=== PATIENT | male | born 1960 | race Caucasian/White ===

== ENCOUNTER 2019-11-04 10:39 | Observation (INO) | payer OTHER, SELFPAY ==
[2019-11-04 11:27] LABS: #Basophils 0.1 thou/uL (0.0-0.2); #Eosinphils 0.1 thou/uL (0.0-0.7); #Lymphocytes 2.4 thou/uL (1.20-3.40); #Monocytes 0.5 thou/uL (0.11-0.59); #Neutrophils 4.8 thou/uL (1.40-6.50); %Eosinophils 1.4 % (0.0-10.0); %Lymphocytes 30.4 % (21.0-51.0); %Monocytes 5.8 % (0.0-10.0); %Neutrophils 61.4 % (42.0-75.0); Hemoglobin 14.5 g/dL (14.0-18.0); Mean Corpuscular HGB CONC 33.5 g/dL (32.0-36.0); Mean Corpuscular Hemoglobin 30.2 pg (27.0-31.0); Mean Platelet Volume 7.5 fL (7.4-10.4); Platelet Count 261 thou/uL (130-400); RBC Distribution Width 11.7 % (11.5-14.5); Red Blood Cell (RBC) Count 4.79 mill/uL (4.70-6.10); White Blood Cell (WBC) Count 7.9 thou/uL (4.8-10.8)
--- NOTE | 2019-11-04 11:46 | RAD ---
EXAM: Single view of the chest HISTORY: Syncope COMPARISON: None FINDINGS: Single view of the chest shows a normal sized cardiomediastinal silhouette. There is no lilia dence of consolidation, mass, or pleural effusion. The bones are unremarkable IMPRESSION: No evidence of acute cardiopulmonary disease
[2019-11-04 11:53] LABS: ALT (SGPT) 23 U/L (8-55); AST (SGOT) 20 U/L (5-34); Albumin 4.1 g/dL (3.5-5.0); Alkaline Phosphatase 47 U/L (40-110); Anion Gap 10 mmol/L (10-20); BUN (Urea Nitrogen) 12 mg/dL (8.4-25.7); Bilirubin, Total 0.5 mg/dL (0.2-1.2); CK (CPK) 129 U/L (30-200); Calc. Creatinine Clearance 0 mL/min (70-130); Calcium 8.6 mg/dL (7.8-10.44); Carbon Dioxide 24 mmol/L (22-29); Chloride 104 mmol/L (98-107); Estimated GFR-MDRD 43; Glucose 172 mg/dL (70-105); Lipase 33 U/L (8-78); Potassium 3.3 mmol/L (3.5-5.1); Protein, Total 7.1 g/dL (6.0-8.3); Sodium 135 mmol/L (136-145)
[2019-11-04 12:01] LABS: Bilirubin Negative (Negative); Blood, Urine Negative (Negative); Clarity Clear (Clear); Glucose, Urine (Dipstick) Normal (Negative); Ketone, Urine Negative (Negative); Leukocyte Negative Leu/uL (Negative); Nitrite Negative (Negative); Protein, Urine (Dipstick) 20 mg/dL (Neg-Trace); Specific Gravity, Urine 1.017 (1.002-1.036); Urobilinogen Normal mg/dL (Less than 2)
[2019-11-04 12:14] LABS: CKMB 1.2 ng/mL (0-6.6)
--- NOTE | 2019-11-04 12:38 | CT ---
CT BRAIN NONCONTRAST: DATE: 11/04/2019 HISTORY: 59-year-old male with syncope and lightheadedness with hypertension. FINDINGS: There is no evidence of acute intra-axial or extra-axial hemorrhage. There is no midline shift or any other mass effect. There is no extra-axial fluid collection. There is no evidence of obstructive hydrocephalus. Calvarium is intact. Visualized upper portions of paranasal sinuses, and the bilateral tympanomastoid cavities, are grossly clear. IMPRESSION: No acute intracranial findings.
[2019-11-04] MEDS ORDERED: Acetaminophen 325 MG TAB PO PRN (12:53)
[2019-11-04] MEDS ORDERED: Guaifenesin DM 100-10/5 ML UDCUP PO PRN (12:53)
[2019-11-04] MEDS ORDERED: Senokot S 8.6-50 MG TAB PO PRN (12:53)
[2019-11-04] MEDS ORDERED: Ondansetron PF 4 MG/2 ML Vial IVP PRN (12:53)
[2019-11-04] MEDS ORDERED: Calcium Carbonate 500 MG ChewTAB PO PRN (12:53)
--- NOTE | 2019-11-04 12:53 | PDOC.FPRHP ---
- History of Present Illness Chief Complaint: syncope History of Present Illness: Pt is a 59yo M with a PMH of HTN, HLD, GERD, and anxiety who presents today with complaints of high BPs and syncope. Patient states he has been taking his BP at home and it has been running high in the 160s/90s. He went to see his PCP about 2 weeks ago and he was given Hydralazine 50mg to take whenever his blood pressure runs high. He states he has only had to take it 3-4 times, and every time after he takes the Hydralazine he feels SOB and dizzy, but denies any syncopal events in the past. Today, his BP was 180/95 and he took Hydralazine and states he felt SOB, dizzy, weak with a REYES and felt like he was going to pass out about 1-2 hours after taking it. He decided he needed to come to the ED and he had a syncopal event that lasted <1min. He denies loss of bowel or bladder function, heart palpitations, chest pain, vision changes. He states his HR runs low in the 60s at baseline. Last echo and stress test were >5 years ago when he was told he had a murmur by his PCP. ED Course: received ASA, 1L fluids, potassium, hydralazine en route to ED - Allergies/Adverse Reactions Allergies Allergy/AdvReac Type Severity Reaction Status Date / Time No Known Allergies Allergy Unverified 11/04/19 13:06 - History PMHx: HTN, HLD, GERD, anxiety PSHx: partial thyroidectomy FHx: mom-renal cancer Social: social alcohol, no drug use, has dipped 1 can every 2 days for the last 40 years - Review of Systems General: denies: fever/chills, fatigue Eyes: denies: vision changes Respiratory: reports: shortness of breath. denies: cough Cardiovascular: denies: chest pain, palpitation, edema Gastrointestinal: denies: nausea, vomiting, diarrhea, constipation, GI bleeding Genitourinary: denies: incontinence, dysuria Skin: denies: rashes Musculoskeletal: denies: swelling Neurological: reports: syncope, weakness. denies: seizure Psychological: reports: anxiety. denies: depression - Vital signs BP: 130/74 HR: 57 RR: 12 Tmax: 97.9 Pox: 97% on RA Wt: 107.9kg - Physical Exam Constitutional: NAD, awake, alert and oriented HEENT: normocephalic and atraumatic, PERRLA, EOMI, conjunctiva clear Neck: supple, FROM, trachea midline Chest: no-tender to palpation Heart: pulses present, no edema -Heart: bradycardic, systolic murmur noted, sinus rhythm Lungs: CTAB, no respiratory distress Abdomen: soft, non-tender, bowel sounds present Musculoskeletal: normal structure, normal tone, ROM grossly normal Neurological: no focal deficit Skin: no rash/lesions -Skin: capillary refill delayed Heme/Lymphatic: no unusual bruising or bleeding Psychiatric: normal mood and affect, good judgment and insight, intact recent and remote memory FMR H&P: Results - Labs Result Diagrams: 11/04/19 11:19 11/04/19 11:19 Lab results: WBC 7.9 thou/uL (4.8-10.8) 11/04/19 11:19 Hgb 14.5 g/dL (14.0-18.0) 11/04/19 11:19 Hct 43.1 % (42.0-52.0) 11/04/19 11:19 MCV 90.0 fL (78.0-98.0) 11/04/19 11:19 Plt Count 261 thou/uL (130-400) 11/04/19 11:19 Neutrophils % 61.4 % (42.0-75.0) 11/04/19 11:19 Sodium 135 mmol/L (136-145) L 11/04/19 11:19 Potassium 3.3 mmol/L (3.5-5.1) L 11/04/19 11:19 Chloride 104 mmol/L (98-107) 11/04/19 11:19 Carbon Dioxide 24 mmol/L (22-29) 11/04/19 11:19 BUN 12 mg/dL (8.4-25.7) 11/04/19 11:19 Creatinine 1.66 mg/dL (0.7-1.3) H 11/04/19 11:19 Glucose 172 mg/dL (70-105) H 11/04/19 11:19 Lactic Acid 3.0 mmol/L (0.5-2.2) H 11/04/19 11:19 Calcium 8.6 mg/dL (7.8-10.44) 11/04/19 11:19 Total Bilirubin 0.5 mg/dL (0.2-1.2) 11/04/19 11:19 AST 20 U/L (5-34) 11/04/19 11:19 ALT 23 U/L (8-55) 11/04/19 11:19 Alkaline Phosphatase 47 U/L (40-110) 11/04/19 11:19 Creatine Kinase 129 U/L (30-200) 11/04/19 11:19 CK-MB (CK-2) 1.2 ng/mL (0-6.6) 11/04/19 11:19 Serum Total Protein 7.1 g/dL (6.0-8.3) 11/04/19 11:19 Albumin 4.1 g/dL (3.5-5.0) 11/04/19 11:19 Lipase 33 U/L (8-78) 11/04/19 11:19 Urine Ketones Negative mg/dL (Negative) 11/04/19 11:49 Urine Blood Negative (Negative) 11/04/19 11:49 Urine Nitrite Negative (Negative) 11/04/19 11:49 Ur Leukocyte Esterase Negative Buffy/uL (Negative) 11/04/19 11:49 - EKG Interpretation EKG: EKG ordered in ED but unable to obtain to review. Ordered repeat EKG. FMR H&P: A/P - Plan Syncope -likely 2/2 bradycardia vs aortic stenosis vs ACS vs medication -patient rai on exam in the 40s-50s. Systolic murmur appreciated on exam -Echo pending -stress test pending -EKG pending -TSH, A1C, BNP pending -continuous monitoring on tele -continue cardiology consult if remains bradycardic and symptomatic Elevated Troponin -.038 on admission -denies CP -will trend CRYSTAL -likely pre-renal -Cr 1.66 on admission -on MIVF LR @150mL/hr -continue to monitor, daily CMP Elevated Lactate -3.0 on admission -MIVF @ 150mL/hr -continue to monitor Hypokalemia -K 3.3 on admission, replaced -continue to monitor HTN -on home Benicar (continue) and Hydralazine PRN (hold) -hydralazine PRN for BP >170 HLD -on home Simvastatin, continue -lipid panel pending Anxiety -on home Lexapro, continue GERD -on home Prilosec, continue Fluids: MIVF @150mL/hr DVT prophylaxis: Lovenox Diet: NPO Code: FULL Dispo: admit to obs, tele. expected LOS <48 hours Patient discussed with attending Dr. Hansen. FMR H&P: Upper Level - Plan Date/Time: 11/04/19 1253 I, Johana Branch MD, have evaluated this patient and agree with findings/plan as outlined by business analyst intern resident. Pertinent changes/additions are listed here. This is a 59yo M with a PMH significant for HTN, HLD, and depression who presents today via EMS for elevated BPs and syncope. The patient states that he noticed his BPs have been elevated over the last couple days like 160s/90s. He takes olmesartan at home for BP and takes hydralazine PRN. He reports that he took his hydralazine this morning and felt overall weak. Reports headache. Denies NV, diaphoresis. He told his co-worker he felt like he was going to pass out. He states he then passed out on the way to the hospital. He states he felt SOB when he took hydralazine previously. When he passed out he said he was out for a matter of seconds. He was not confused afterwards, did not bite his tongue , no loss of bowels. He does not have a hx of seizures of syncope. He was not overheated or anything at the time of this episode. He denies chest pain or palpitations. Does endorse hx of murmur that he previously saw Dr. Weber for - he had a Echo and stress test done about 5 years ago and that he "barely passed." In the ER, the patient's BPs normalized. HR 50s. Was given ASA, 1L NS, and K-dur. Labs significant indeterminant trop of 0.03, Cr 1.66, LA 3. Exam significant for systolic murmur over L sternal border 3/6, delayed cap refill. P atient with syncope likely 2/2 bradycardia vs medication vs . Will admit to tele obs. Will get echo, stress test. Heart score of 5 with risk factors. Consider cards consult if patient remains bradycardic. Will risk stratify with LP, TSH, A1c. Patient also appeared dehydrated on exam, will give IVF. CRYSTAL likely due to dehydration - mIVF. Will monitor electrolytes and replace as necessary. Will restart home medications for HTN. Will have PRNs available. Will restart home meds for HLD. See business analyst intern note for full HPI/details. Case discussed with Dr. Hansen Addendum - Attending - Attending Attestation Date/Time: 11/04/192031 I personally evaluated the patient and discussed the management with Dr. Perera/ Jose Carlos. I agree with the History, Examination, Assessment and Plan documented above with any addition or exceptions noted below.
[2019-11-04] MEDS ORDERED: hydrALAZINE 20 MG/ML VIAL SLOW IVP PRN (13:02)
[2019-11-04] MEDS ORDERED: Potassium Chloride 20 MEQ TAB ONE (13:08)
[2019-11-04] MEDS ORDERED: Aspirin Chewable 81 MG TAB ONE (13:08)
[2019-11-04] MEDS ORDERED: Lactated Ringer's 1,000 ML IV SCH ×2 (13:15)
[2019-11-04] MEDS ORDERED: Ondansetron ODT 4 MG TAB PO PRN (13:15)
[2019-11-04] MEDS ORDERED: Enoxaparin Sodium 40 MG/0.4 ML SYRINGE SC SCH (13:30)
[2019-11-04 14:23] LABS: Hemoglobin A1c 5.6 % (4.0-6.0)
[2019-11-04 14:30] LABS: Cardiac Risk 4.3 (Less than 4.5)
[2019-11-04 14:31] LABS: Lactic Acid 1.6 mmol/L (0.5-2.2)
[2019-11-04 14:40] LABS: Troponin I 0.041 ng/mL (< 0.028)
[2019-11-04 15:03] VITALS: BMI 32.3
[2019-11-04] MEDS: Lactated Ringer's 1,000 ML IV SCH ×2 (16:10→23:43)
[2019-11-04 18:04] LABS: Troponin I 0.045 ng/mL (< 0.028)
[2019-11-04] MEDS ORDERED: Atorvastatin Calcium 10 MG TAB PO SCH (21:00)
[2019-11-04] MEDS ORDERED: Nicotine 14 MG PATCH TD SCH (21:00)
[2019-11-04 21:27] LABS: Troponin I 0.036 ng/mL (< 0.028)
[2019-11-05 04:43] LABS: #Basophils 0.1 thou/uL (0.0-0.2); #Eosinphils 0.2 thou/uL (0.0-0.7); #Lymphocytes 3.3 thou/uL (1.20-3.40); #Monocytes 0.6 thou/uL (0.11-0.59); #Neutrophils 3.1 thou/uL (1.40-6.50); %Eosinophils 2.6 % (0.0-10.0); %Monocytes 7.9 % (0.0-10.0); %Neutrophils 42.5 % (42.0-75.0); Hemoglobin 13.7 g/dL (14.0-18.0); Mean Corpuscular HGB CONC 33.2 g/dL (32.0-36.0); Mean Corpuscular Hemoglobin 30.1 pg (27.0-31.0); Mean Corpuscular Volume 90.8 fL (78.0-98.0); Mean Platelet Volume 7.9 fL (7.4-10.4); Platelet Count 244 thou/uL (130-400); RBC Distribution Width 11.7 % (11.5-14.5); Red Blood Cell (RBC) Count 4.54 mill/uL (4.70-6.10); White Blood Cell (WBC) Count 7.2 thou/uL (4.8-10.8)
[2019-11-05 04:59] LABS: ALT (SGPT) 20 U/L (8-55); AST (SGOT) 15 U/L (5-34); Albumin 3.9 g/dL (3.5-5.0); Alkaline Phosphatase 44 U/L (40-110); Anion Gap 10 mmol/L (10-20); BUN (Urea Nitrogen) 9 mg/dL (8.4-25.7); Bilirubin, Total 0.6 mg/dL (0.2-1.2); Calc. Creatinine Clearance 84 mL/min (70-130); Calcium 8.8 mg/dL (7.8-10.44); Carbon Dioxide 27 mmol/L (22-29); Chloride 107 mmol/L (98-107); Estimated GFR-MDRD 49; Globulin 2.9 g/dL (2.4-3.5); Glucose 98 mg/dL (70-105); Protein, Total 6.8 g/dL (6.0-8.3); Sodium 140 mmol/L (136-145)
--- NOTE | 2019-11-05 06:21 | PDOC.FM ---
- Subjective Subjective: Patient resting comfortably in bed this AM. Denies any episodes of syncope since admission. Denies weakness, REYES, vision changes, CP, SOB, abdominal pain. Tele showed sinus rai, first degree AV block, variable MO interval. Orthostatic vitals sitting 136/68, standing 128/66, supine 144/67 - Objective MAR Reviewed: Yes Vital Signs & Weight: Vital Signs (12 hours) Temp Pulse Resp BP Pulse Ox 11/05/19 05:00 97.7 F 50 L 16 146/74 H 97 11/05/19 00:18 97 11/04/19 19:37 98.9 F 60 18 159/79 H 97 Weight Weight 107.983 kg I&O: 11/03/19 11/04/19 11/05/19 06:59 06:59 06:59 Intake Total 1240 Output Total 1125 Balance 115 Result Diagrams: 11/05/19 03:54 11/05/19 03:54 Phys Exam - Physical Examination Constitutional: NAD HEENT: moist MMs, sclera anicteric Neck: full ROM Respiratory: no wheezing, clear to auscultation bilateral systolic murmur 3/6 appreciated on exam. bradycardic Gastrointestinal: soft, non-tender, positive bowel sounds Musculoskeletal: no edema, pulses present Neurological: moves all 4 limbs Psychiatric: normal affect, A&O x 3 Skin: no rash, normal turgor, cap refill <2 seconds Dx/Plan - Plan Plan: Syncope -likely 2/2 bradycardia vs aortic stenosis vs ACS vs medication -patient rai on exam in the 40s-50s. Systolic murmur appreciated on exam -Echo pending -stress test pending -EKG showed sinus bradycardia -continuous monitoring on tele -continue cardiology consult if remains bradycardic and symptomatic Elevated Troponin -.038 on admission -denies CP -.038>.041>.045>.036 CRYSTAL -likely pre-renal -Cr 1.66 on admission, improving -on MIVF LR @150mL/hr -continue to monitor, daily CMP Elevated Lactate, resolved -3.0 on admission > 1.6 -MIVF @ 150mL/hr -continue to monitor Hypokalemia, resolved -K 3.3 on admission, replaced -continue to monitor HTN -on home Benicar (continue) and Hydralazine PRN (hold) -hydralazine PRN for BP >170 HLD -on home Simvastatin, increase to high intensity -lipid panel total cholesterol 238, HDL 38, Triglycerides 238, LDL 79 -ASCVD 10 year risk 17.8% Anxiety -on home Lexapro, continue GERD -on home Prilosec, continue Fluids: MIVF @140mL/hr DVT prophylaxis: Lovenox Diet: NPO for stress test today, then heart healthy Code: FULL Dispo: admit to obs, tele. expected LOS <48 hours Patient discussed with attending Dr. Hansen. Addendum - Attending - Attending Attestation Date/Time: 11/05/19 9273 I personally evaluated the patient and discussed the management with Dr. Perera. I agree with the History, Examination, Assessment and Plan documented above with any addition or exceptions noted below. Patient feeling well. Completing stress test and echo today. No major bradycardia on tele monitoring. Further mgmt and dispo pending cardiac stress results. Adding Norvasc for BP control.
[2019-11-05] MEDS ORDERED: Atorvastatin Calcium 10 MG TAB PO SCH ×2 (06:26→09:00)
[2019-11-05] MEDS: Lactated Ringer's 1,000 ML IV SCH ×3 (08:10→19:17)
[2019-11-05] MEDS ORDERED: Escitalopram Oxalate 10 mg Tablet PO SCH (09:00)
[2019-11-05] MEDS ORDERED: Enoxaparin Sodium 40 MG/0.4 ML SYRINGE SC SCH (09:00)
[2019-11-05] MEDS ORDERED: Losartan 25 MG TAB PO SCH (09:00)
[2019-11-05] MEDS ORDERED: Amlodipine 5 MG TAB PO SCH (09:00)
--- NOTE | 2019-11-05 12:16 | NM ---
Radionucleotide stress and rest myocardial perfusion scan with CT attenuation correction and SPECT im aging Left ventricular wall motion evaluation and ejection fraction HISTORY: Chest pain. Dyspnea. FINDINGS: Arnol protocol. Total test time 7:00. Maximum heart rate 150 bpm. There is homogeneous uptake of radiotracer throughout the left ventricular myocardium. No focal perfu mai defect or reversibility. QGS analysis of gated SPECT images shows no focal wall motion abnormalities. LHR 28%. T.i.d. 1.0. Ejection fraction calculated at 61%. IMPRESSION : No evidence of ischemia. Normal LVEF.
[2019-11-05 14:20] LABS: SARS-CoV-2 MS2 Positive; SARS-CoV-2 N Gene Negative; SARS-CoV-2 S Gene Negative; SARS-CoV-2 by NAA Not Detected (NotDetected); SARS-CoV-2 orf1ab Negative
[2019-11-05 20:55] VITALS: BP 164/79; TEMP 98.1
[2019-11-05] MEDS ORDERED: Atorvastatin Calcium 40 MG TAB PO SCH (21:00)
--- NOTE | 2019-11-06 09:52 | DIS ---
DATE OF ADMISSION: 11/04/2019 DATE OF DISCHARGE: 11/05/2019 RESIDENT: Becca Perera MD, PGY-1 ADMITTING ATTENDING: Jose Hansen MD DISCHARGE ATTENDING: Jose Hansen MD CONSULTS: None. PROCEDURES: Stress test, which showed ejection fraction calculated at 61% and no evidence of ischemia. CT brain noncontrast showed no acute intracranial findings. Chest x-ray showed no evidence of acute cardiopulmonary disease. An echo was done, which was read by Dr. Weber and showed normal ejection fraction as noted previously and [id number] aortic stenosis, which is chronic. PRIMARY DIAGNOSIS: Syncope likely secondary to bradycardia versus aortic stenosis. SECONDARY DIAGNOSES: 1. Elevated troponin, trended down. 2. Acute kidney injury. 3. Elevated lactate, resolved. 4. Hypokalemia, resolved. 5. Hypertension. 6. Hyperlipidemia. 7. Anxiety. 8. Gastroesophageal reflux disease. DISCHARGE MEDICATIONS: 1. Amlodipine 5 mg p.o. daily. 2. Lipitor 40 mg p.o. at bedtime. 3. Benicar 40 mg p.o. daily. 4. Citalopram 10 mg p.o. daily. DISCONTINUED MEDICATIONS: 1. Hydralazine 50 mg p.o. b.i.d. p.r.n. 2. Simvastatin 20 mg p.o. daily. HISTORY OF PRESENT ILLNESS/HOSPITAL COURSE: The patient is a 59-year-old male with past medical history of hypertension, hyperlipidemia, GERD, and anxiety, who presented with complaints of high blood pressures and syncope. The patient states that he was taking his blood pressures at home and they have been running high in the 150s/90s. He went to see his PCP about 2 weeks ago and he was given hydralazine 50 mg to take whenever his blood pressures run high. He has only had to take it about 3 to 4 times, but states every time he takes it, he feels short of breath and dizzy, but he denies any previous syncopal event. On date of admission, blood pressure was 180/95, so he took the hydralazine and stated he felt short of breath, dizzy, weak, with headache and felt like he was going to pass out. About 1 to 2 hours after taking the medication, he did pass out. En route to the ED, he states that he was out for less than 1 minute. He denies loss of bowel or bladder function. Denies heart palpitations, chest pain, or vision changes. He states his heart rate runs low in the 60s at baseline and that his last echo and stress test greater than 5 years ago. Around that time, he was told he had a heart murmur by his PCP. While in the ED, the patient received aspirin, 1 L of fluid, potassium, and hydralazine for his high blood pressures. On examination by the Primary Team, the patient was not having any symptoms with the exception of a headache. His vitals were stable with the exception of bradycardia anywhere from the 40s to 60s. During hospitalization, the patient did not have any more syncopal episodes. His orthostatic vitals were negative and he remained bradycardic in the 50s to 60s, but was asymptomatic throughout his stay. On telemetry, it was noted that he had first-degree heart block and was in sinus bradycardia throughout his stay. The patient had a stress test and echo done, result as listed above. DISPOSITION: Stable. DISCHARGE INSTRUCTIONS: 1. Location: Home. 2. Diet: Diabetic diet and heart-healthy diet. 3. Activity: No restriction. 4. Followup: Follow up with primary care provider in 7 days for hospital followup and to optimize comorbid conditions and follow up with Dr. Ny, soaping machine back tender, in 2 weeks to consider further cardiac workup. Job ID: [id number] MTDD
== END 2019-11-05 20:59 | disposition home or self-care (01) ==
LOC: ERS 10:39 → 2NO 14:51
PROVIDERS: ADMIT Student in an Organized Health Care Education/Training Program; ATTEND Student in an Organized Health Care Education/Training Program
DX: R55 Syncope and collapse (principal); R79.89 Other specified abnormal findings of blood chemistry; N17.9 Acute kidney failure, unspecified; R74.0 Nonspecific elevation of levels of transaminase and lactic acid dehydrogenase [LDH]; E87.6 Hypokalemia; I10 Essential (primary) hypertension; E78.5 Hyperlipidemia, unspecified; F41.9 Anxiety disorder, unspecified; K21.9 Gastro-esophageal reflux disease without esophagitis; E89.0 Postprocedural hypothyroidism; F17.220 Nicotine dependence, chewing tobacco, uncomplicated; I44.0 Atrioventricular block, first degree; I35.0 Nonrheumatic aortic (valve) stenosis; Z79.899 Other long term (current) drug therapy; Z20.828 Contact with and (suspected) exposure to other viral communicable diseases
CPT/HCPCS: 36415; 70450; 71045; 78452; 80053; 80061; 81003; 82550; 82553; 83036; 83605; 83690; 83880; 84443; 84484; 85025; 85379; 87040; 87086; 87635; 93005; 93017; 93306; 96360; 96361; 96372; A9500; G0378; J1650; U0003